=== PATIENT | male | born 1955 | race African-American/Black ===

== ENCOUNTER 2017-04-30 11:51 | Emergency (ER) | payer OTHER ==
--- NOTE | 2017-04-30 14:06 | ED ---
Skin Complaint - HPI Summary HPI Summary: Patient presents with a 3m by 3cm epidermal cyst which has become infected and presenting with erythema and warmth around the wound. He endorses mild drainage from the area. Has been using warm compresses and hot shower. Continues to keep the area covered. He was seen by his PCP, Dr. Lamas who sent him to Dr. Gill the disassembler for possible excision of the area. He was placed on Keflex x2 days but states he feels it has gotten worse. Denies fevers, aches, chills or sweats. He notes pain surrounding the area which has been worse than several days ago. He is unsure the length of time the cyst has been present. - History of Current Complaint Chief Complaint: EDGeneral Time Seen by Provider: 04/30/17 12:28 Stated Complaint: INFLAMED/BURST CYST ON UPPER BACK Hx Obtained From: Patient Onset/Duration: Started Days Ago Skin Exposure Onset/Duration: Days Ago Timing: Constant Onset Severity: Moderate Current Severity: Moderate Pain Intensity: 7 Pain Scale Used: 0-10 Numeric Skin Location: Discrete - mid back between shoulder blades Character: Swelling, Pain, Redness, Raised Aggravating Symptom(s): Touch Alleviating Symptom(s): Heat Associated Signs & Symptoms: Tenderness - Additional Pertinent History Primary Care Physician: [id number] - Allergy/Home Medications Allergies/Adverse Reactions: Allergies Allergy/AdvReac Type Severity Reaction Status Date / Time No Known Allergies Allergy Verified 12/27/16 10:10 PMH/Surg Hx/FS Hx/Imm Hx Previously Healthy: Yes Endocrine/Hematology History: Denies: Hx Diabetes, Hx Thyroid Disease Cardiovascular History: Denies: Hx Hypertension, Hx Pacemaker/ICD Respiratory History: Denies: Hx Asthma, Hx Chronic Obstructive Pulmonary Disease (COPD) GI History: Denies: Hx Ulcer History: Reports: Other Problems/Disorders - prostate cancer, recently diagnosed Musculoskeletal History: Reports: Hx Arthritis, Hx Rheumatoid Arthritis, Hx Orthopedic Injury - left hip fx, Other Musculoskeletal History - left knee Sensory History: Denies: Hx Hearing Aid Neurological History: Reports: Hx Seizures, Other Neuro Impairments/Disorders - hx of seizures Psychiatric History: Reports: Hx Depression - dx major depression recurrent and severe, Hx Inpatient Treatment - Past [facility] admissions last known 2006, Hx of Violent Episodes Against Others - no current concerns noted, Hx Substance Abuse - known ETOH and cocaine use Denies: Hx Panic Disorder - Cancer History Cancer Type, Location and Year: Pt states he is recently diagnosed with prostate cancer - Surgical History Surgery Procedure, Year, and Place: left knee 1990, left hip fracture August 2015 - Immunization History Hx Pertussis Vaccination: No Immunizations Up to Date: Unable to Obtain/Confirm Infectious Disease History: No Infectious Disease History: Reports: Hx Hepatitis - hepatits C Denies: Hx Human Immunodeficiency Virus (HIV), History Other Infectious Disease, Traveled Outside the [place] in Last 30 Days - Family History Known Family History: Positive: Unknown - Social History Occupation: Unemployed Lives: With Family Alcohol Use: None Alcohol Amount: hx of alcohol use Hx Substance Use: Yes Substance Use Type: Reports: Cocaine Substance Use Comment - Amount & Last Used: pt admits to recent cocaine use prior to ED visit Hx Tobacco Use: Yes Smoking Status (MU): Light Every Day Tobacco Smoker Type: Cigarettes Amount Used/How Often: trying to quit , a few cigarettes a day Review of Systems Constitutional: Negative Cardiovascular: Negative Respiratory: Negative Positive: no symptoms reported, see HPI Musculoskeletal: Negative Positive: Other Neurological: Negative Psychological: Normal All Other Systems Reviewed And Are Negative: Yes Physical Exam Vital Signs On Initial Exam: Initial Vitals Temp Pulse Resp BP Pulse Ox 98.9 F 87 18 104/69 98 04/30/17 11:59 04/30/17 11:59 04/30/17 11:59 04/30/17 11:59 04/30/17 11:59 Procedures - Incision and Drainage Anesthesia: Lidocaine Instrument(s): Needle Packing: Other - no packing Diagnostics - Vital Signs Vital Signs Temp Pulse Resp BP Pulse Ox 04/30/17 12:05 96.8 F 86 17 104/69 98 04/30/17 11:59 98.9 F 87 18 104/69 98 - Laboratory Lab Statement: Any lab studies that have been ordered have been reviewed, and results considered in the medical decision making process. Course/Dx - Course Course Of Treatment: Mid back between shoulder blades epidermal cyst measuring 3X3cm. Iodine used around wound for cleansing. Xylocaine 1% 2ml for local anesthetic around the wound, patient tolerated well. Copious discharge from the surface of the wound. The cyst extends deep, is indurated and non- fluctuant. Attempted to aspiriate some fluid with 15 gauage without success. Culture sent. Telfa dressing applied with tegaderm. Return precuations given. Explained to patient and friend this cyst will need to be excised by Dermatology at dermatologists discretion and encouraged to call office on Monday morning for appt. Continue with keflex as prescribed. At this time, will not change abx. Will await cultures and call if abx change is required. Patient understands discharge and will follow up. - Differential Diagnoses - Skin Complaint Differential Diagnoses: Abscess, Cellulitis, Impetigo, Other - cyst, epidermal cyst - Diagnoses Provider Diagnoses: Epidermal inclusion cyst Discharge - Discharge Plan Condition: Stable Disposition: HOME Patient Education Materials: Epidermal Inclusion Cysts (ED) Referrals: Radha Lamas MD [Primary Care Provider] - Additional Instructions: Follow up with Dr. Gill Call office on Monday Warm compresses to area Keep covered with dressings given to you Shower as normal If you develop any fevers, return to ED immediately.
[2017-04-30 14:13] VITALS: BP 133/75
== END 2017-04-30 14:21 | disposition home or self-care (01) ==
LOC: ED 11:51
DX: L72.0 Epidermal cyst (principal); F17.210 Nicotine dependence, cigarettes, uncomplicated; C61 Malignant neoplasm of prostate
CPT/HCPCS: 87070; 87205; 87640; 87641; 99282

== ENCOUNTER 2017-08-05 19:27 | Observation (INO) | payer OTHER ==
[2017-08-05] MEDS ORDERED: LORazepam INJ* 2 MG/ML 1 ML VIAL IV PUSH ONE (19:55)
[2017-08-05] MEDS ORDERED: LORazepam INJ* 2 MG/ML 1 ML VIAL ONE (19:59)
[2017-08-05] MEDS ORDERED: NS 0.9% 1000 ML* 1,000 ML IV SCH ×2 (20:15→23:15)
[2017-08-05 20:43] LABS: Hematocrit 39 % (42-52); Hemoglobin 13.3 g/dl (14.0-18.0); Mean Corpuscular HGB Conc 35 g/dl (31-36); Mean Corpuscular Hemoglobin 30 pg (27-31); Mean Corpuscular Volume 86 fL (80-94); Mean Platelet Volume 9 um3 (7.4-10.4); Red Blood Count 4.51 10^6/ul (4.0-5.4); Red Cell Distribution Width 16 % (10.5-15)
--- NOTE | 2017-08-05 20:44 | RAD ---
INDICATION: Seizure. COMPARISON: Comparison is made with a prior chest x-ray study from September 09, 2015. TECHNIQUE: 2 portable films of the chest were obtained. FINDINGS: The heart appears mildly enlarged. The lungs are underinflated. There are diffuse prominence of the interstitial markings. No pleural effusion is seen. IMPRESSION: PROMINENCE OF THE INTERSTITIAL MARKINGS SUGGESTIVE OF CONGESTIVE HEART FAILURE OR ALTERNATIVELY SECONDARY TO LOW LUNG VOLUMES.
[2017-08-05 21:01] LABS: Ammonia 67 mol/L (16-53)
[2017-08-05 21:02] LABS: ALT 16 U/L (7-52); AST 18 U/L (13-39); Albumin 3.4 g/dL (3.2-5.2); Alkaline Phosphatase 101 U/L (34-104); Anion Gap 10 mmol/L (2-11); BUN/Creatinine Ratio 19.5 (8-20); Blood Urea Nitrogen 15 mg/dL (6-24); C Reactive Protein 12.54 mg/L (< 5.00); CO2 Carbon Dioxide 23 mmol/L (22-32); Calcium 8.7 mg/dL (8.6-10.3); Chloride 105 mmol/L (101-111); Creatine Kinase 103 U/L (10-223); EGFR African American 130.8 (>60); EGFR Non-African American 101.7 (>60); Globulin 4.8 g/dL (2-4); Glucose 91 mg/dL (70-100); Lipase < 10 U/L (11.0-82.0); Magnesium 1.9 mg/dL (1.9-2.7); Potassium 3.6 mmol/L (3.5-5.0); Sodium 138 mmol/L (133-145); Total Protein 8.2 g/dL (6.4-8.9)
[2017-08-05 21:05] LABS: B Type Natriuretic Peptide 66 pg/mL
[2017-08-05 21:23] LABS: Acetaminophen < 15 mcg/mL; Alcohol < 10 mg/dL (<10)
[2017-08-05 21:39] LABS: TSH (Thyroid Stimulating Horm) 3.74 mcIU/mL (0.34-5.60)
[2017-08-05] MEDS: NS 0.9% 1000 ML* 2,000 ML IV ONE (22:31)
[2017-08-05] MEDS ORDERED: Acetaminophen TAB* 325 MG PO PRN (22:53)
[2017-08-05] MEDS ORDERED: LORazepam INJ* 2 MG/ML 1 ML VIAL IV PUSH PRN (22:57)
[2017-08-06 01:25] LABS: Urine Bacteria Absent (Absent); Urine Bilirubin Negative (Negative); Urine Glucose Negative (Negative); Urine Nitrite Negative (Negative)
--- NOTE | 2017-08-06 02:11 | HP ---
CC: Dr. Lamas; Dr. Blackwood * HISTORY AND PHYSICAL: DATE OF ADMISSION: 08/05/17 PRIMARY CARE PROVIDER: Dr. Lamas. CHIEF COMPLAINT: Seizure. HISTORY OF PRESENT ILLNESS: Scott Trejo is a 62-year-old male with a history of seizure disorder who apparently did not have a seizure for approximately 10 years. He came into the emergency department after he had one seizure, what was generalized clonic tonic and at home. When he was being evaluated by the ED physician, he seized again. At this point he received 2 mg of IV Ativan and currently he is sedated. Apparently before he got sedated and postictal, he told the ER physician that he had been on Keppra at 500 mg twice a day and his primidone was discontinued due to recently diagnosed "liver problems." The ER physician called Dr. Blackwood from Neurology, who recommended a bolus of 750 mg of IV Keppra, the patient is not sure what dose and when was the last dose of his Keppra medication. Unfortunately, we are unable to confirm the last dose of the patient's medication due to that he was seizing, then he was postictal and sedated with Ativan. Currently, the patient is still sedated. Past medical history is taken from medical records from admission in 2015. PAST MEDICAL HISTORY: Includes: 1. Alcohol abuse. 2. Rheumatoid arthritis. 3. Neuropathy. 4. Prostate cancer. 5. Seizure disorder. 6. Depression. 7. Hepatitis C. Recently diagnosed "liver disorder." MEDICATIONS: At home and none apart from confirmed by the ED physician, Keppra 500 mg b.i.d. and primidone that was discontinued. ALLERGIES: No known drug allergies reported recently in medical records. FAMILY HISTORY: From medical records, mother has a history of alcohol abuse and father with a history of unknown tumor. SOCIAL HISTORY: The patient is unable to give me enough social history, but apparently had a history of smoking and drinking in the past. The patient was not able to name his surrogate now because of being sedated. REVIEW OF SYSTEMS: Unobtainable from this sedated and postictal patient. PHYSICAL EXAMINATION GENERAL: The patient is a 62-year-old male who is currently mumbling to himself , unable to give me his name due to sedation. The patient appears in no acute distress, once again fairly sedated. VITAL SIGNS: Blood pressure 182/79, heart rate of 98 and regular, respiratory rate of 21, oxygen saturation 93% on 2L of oxygen nasal cannula, temperature of 98.4. HEENT: Head: Atraumatic, normocephalic. Eyes: Pupils equal and reactive to light. Oropharynx clear. Mucosa is moist. NECK: Supple. No JVD, no bruits bilaterally. RESPIRATORY: Clear to auscultation bilaterally. CARDIOVASCULAR: Regular rate and rhythm. No murmur. ABDOMEN: Soft and nontender. Bowel sounds are present in all 4 quadrants. EXTREMITIES: There is no edema. Pulses are 2+ bilaterally. No clubbing or cyanosis. NEURO EVALUATION: The patient is currently sedated. He withdraws in all extremities to pain with equal strength. SKIN: On evaluation of the skin, no ecchymotic areas or rashes noted. DIAGNOSTIC STUDIES/LAB DATA: Showed sodium of 138, potassium 3.6, chloride 105 , carbon dioxide 23, BUN 15, creatinine 0.77. Liver function tests were unremarkable. C-reactive protein of 12. Ammonia of 67, lipase of below 10, TSH of 3.7. CBC: White blood cell count 7.0, hemoglobin of 13.3, hematocrit of 39, and platelets of 154,000. Patient's lactic acid was 7.2. Acetaminophen and serum alcohol below detectable. Portable chest x-ray: "Prominence of interstitial marking suggestive of congestive heart failure or secondary to low lung volumes." The patient's EKG showed sinus rhythm with a heart rate of 95 beats per minute with no ST changes. ASSESSMENT AND PLAN: This is a 62-year-old male with a history of seizure disorder who recently has had medications changed due to problems with liver disease. At this point, the patient is going to be placed on Keppra [address] Blackwood will be asked to see the patient in the morning for consultation. He was already notified by the ED physician. We will place the patient on anesthesia precautions and Ativan as needed if seizure recurs. The patient's ammonia level is mildly elevated. At this point, the patient would not tolerate p.o. lactulose. I will recheck the level in the morning. The patient's lactic acid is elevated due to seizure. We will place the patient on gentle intravenous hydration. We will also place the patient on clear liquid diet and may be able to advance it later on as tolerated depending on the patient's mental status. For DVT prophylaxis, the patient is going to be placed on heparin subcutaneously. All the remaining medications for the time being are going to be held and confirmed in the morning with either the patient's primary care provider or his pharmacy when he is more lucid. Code status. By default, the patient is going to be full code. That also will have to be confirmed whilst the patient is more lucid in the morning. [id number]/CPS #: [id number] MTDD
--- NOTE | 2017-08-06 06:05 | ED ---
Destiney Bhatt Rebecca, scribed for Arnaldo Sexton MD on 08/05/17 at 1959 . Neurological HPI - HPI Summary HPI Summary: Pt is a 62 y/o M BIBA who presents to ED s/p seizure. 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 Pt reports that he does not remember the incident, stating the last thing that he can recall is watching a baseball game and that he does not remember EMS arriving. Negative trauma during the seizure, including head trauma. Pt currently c/o fatigue. Denies fever, chills, weakness and any pain including BATES and abdominal pain. 1 week ago, the pt's medication was changed from Primidone to Keppra BID due to a new Hepatitis C medication. Pt denies any recent stressors or EtOH use. Neurologist is Dr. Almanza. While being evaluated, after the television was turned on, the pt experineced a sudden onset seizure that spontaneously resolved. 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, one in the ED Pain Intensity: 0 Pain Scale Used: 0-10 Numeric Seizure Character: Generalized, Total-Clonic Aggravating: Medication Change - Primidone to Keppra Alleviating: Spontanious Resolution Associated Signs and Symptoms: Negative: Weakness - Additional Pertinent History Primary Care Physician: [id number] - Allergy/Home Medications Allergies/Adverse Reactions: Allergies Allergy/AdvReac Type Severity Reaction Status Date / Time No Known Allergies Allergy Verified 12/27/16 10:10 PMH/Surg Hx/FS Hx/Imm Hx Endocrine/Hematology History: Denies: Hx Diabetes, Hx Thyroid Disease Cardiovascular History: Denies: Hx Hypertension, Hx Pacemaker/ICD Respiratory History: Denies: Hx Asthma, Hx Chronic Obstructive Pulmonary Disease (COPD) GI History: Denies: Hx Ulcer History: Reports: Other Problems/Disorders - prostate cancer, recently diagnosed Musculoskeletal History: Reports: Hx Arthritis, Hx Rheumatoid Arthritis, Hx Orthopedic Injury - left hip fx, Other Musculoskeletal History - left knee Sensory History: Denies: Hx Hearing Aid Neurological History: Reports: Hx Seizures, Other Neuro Impairments/Disorders - hx of seizures Psychiatric History: Reports: Hx Depression - dx major depression recurrent and severe, Hx Inpatient Treatment - Past [facility] admissions last known 2006, Hx of Violent Episodes Against Others - no current concerns noted, Hx Substance Abuse - known ETOH and cocaine use Denies: Hx Panic Disorder - Cancer History Cancer Type, Location and Year: Pt states he is recently diagnosed with prostate cancer - Surgical History Surgery Procedure, Year, and Place: left knee 1990, left hip fracture August 2015 Infectious Disease History: Unable to Obtain/Confirm Infectious Disease History: Reports: Hx Hepatitis - hepatits C Denies: Hx Human Immunodeficiency Virus (HIV), History Other Infectious Disease, Traveled Outside the [place] in Last 30 Days - Family History Known Family History: Positive: Other - EtOH abuse (mother) - Social History Alcohol Use: None Alcohol Amount: hx of alcohol use Hx Substance Use: Yes Substance Use Type: Reports: Cocaine Substance Use Comment - Amount & Last Used: pt admits to recent cocaine use prior to ED visit Hx Tobacco Use: Yes Smoking Status (MU): Light Every Day Tobacco Smoker Type: Cigarettes Amount Used/How Often: trying to quit , a few cigarettes a day Review of Systems Negative: Fever, Chills Negative: Abdominal Pain Positive: Other - NEGATIVE: pain Neurological: Other - s/p 1 seizure, 1 seizure in the ED Negative: Headache, Weakness All Other Systems Reviewed And Are Negative: Yes Physical Exam - Summary Physical Exam Summary: General: well-appearing, no pain distress Skin: warm, color reflects adequate perfusion, dry Head: normal Eyes: EOMI, ADRIA ENT: normal Neck: supple, nontender Respiratory: CTA, breath sounds present Cardiovascular: RRR Abdomen: soft, nontender Bowel: present Musculoskeletal: normal, strength/ROM intact Neurological: sensory/motor intact, A&O x3, while in the room pt experienced a generalized tonic clonic seizure that lasted approximately 45 seconds Psychological: affect/mood appropriate Triage Information Reviewed: Yes Vital Signs On Initial Exam: Initial Vitals Temp Pulse Resp BP Pulse Ox 98.4 F 88 16 132/81 95 08/05/17 19:30 08/05/17 19:30 08/05/17 19:30 08/05/17 19:30 08/05/17 19:30 Vital Signs Reviewed: Yes - Platter Coma Scale Coma Scale Total: 15 Diagnostics - Vital Signs Vital Signs Temp Pulse Resp BP Pulse Ox 08/05/17 19:30 98.4 F 88 16 132/81 95 - Laboratory Lab Results: Lab Results 08/05/17 08/05/17 08/05/17 Range/Units 20:30 20:30 20:30 WBC (3.5-10.8) 10^3/ul RBC (4.0-5.4) 10^6/ul Hgb (14.0-18.0) g/dl Hct (42-52) % MCV (80-94) fL MCH (27-31) pg MCHC (31-36) g/dl RDW (10.5-15) % Plt Count (150-450) 10^3/ul MPV (7.4-10.4) um3 Neut % (Auto) (38-83) % Lymph % (Auto) (25-47) % Clinton % (Auto) (1-9) % Eos % (Auto) (0-6) % Baso % (Auto) (0-2) % Absolute Neuts (auto) (1.5-7.7) 10^3/ul Absolute Lymphs (auto) (1.0-4.8) 10^3/ul Absolute Monos (auto) (0-0.8) 10^3/ul Absolute Eos (auto) (0-0.6) 10^3/ul Absolute Basos (auto) (0-0.2) 10^3/ul Absolute Nucleated RBC 10^3/ul Nucleated RBC % INR (Anticoag Therapy) 1.06 (0.89-1.11) APTT 24.9 L (26.0-36.3) seconds Sodium 138 (133-145) mmol/L Potassium 3.6 (3.5-5.0) mmol/L Chloride 105 (101-111) mmol/L Carbon Dioxide 23 (22-32) mmol/L Anion Gap 10 (2-11) mmol/L BUN 15 (6-24) mg/dL Creatinine 0.77 (0.67-1.17) mg/dL Est GFR ( Amer) 130.8 (>60) Est GFR (Non-Af Amer) 101.7 (>60) BUN/Creatinine Ratio 19.5 (8-20) Glucose 91 (70-100) mg/dL Lactic Acid (0.5-2.0) mmol/L Calcium 8.7 (8.6-10.3) mg/dL Magnesium 1.9 (1.9-2.7) mg/dL Total Bilirubin 0.30 (0.2-1.0) mg/dL AST 18 (13-39) U/L ALT 16 (7-52) U/L Alkaline Phosphatase 101 (34-104) U/L Ammonia 67 H (16-53) mol/L Total Creatine Kinase 103 (10-223) U/L CK-MB (CK-2) 1.6 (0.6-6.3) ng/mL Troponin I 0.00 (<0.04) ng/mL C-Reactive Protein 12.54 H (< 5.00) mg/L B-Natriuretic Peptide 66 ( - 100) pg/mL Total Protein 8.2 (6.4-8.9) g/dL Albumin 3.4 (3.2-5.2) g/dL Globulin 4.8 H (2-4) g/dL Albumin/Globulin Ratio 0.7 L (1-3) Lipase < 10 L (11.0-82.0) U/L TSH 3.74 (0.34-5.60) mcIU/mL Acetaminophen < 15 mcg/mL Serum Alcohol < 10 (<10) mg/dL 08/05/17 08/05/17 Range/Units 20:30 20:30 WBC 7.0 (3.5-10.8) 10^3/ul RBC 4.51 (4.0-5.4) 10^6/ul Hgb 13.3 L (14.0-18.0) g/dl Hct 39 L (42-52) % MCV 86 (80-94) fL MCH 30 (27-31) pg MCHC 35 (31-36) g/dl RDW 16 H (10.5-15) % Plt Count 154 (150-450) 10^3/ul MPV 9 (7.4-10.4) um3 Neut % (Auto) 70.0 (38-83) % Lymph % (Auto) 19.7 L (25-47) % Clinton % (Auto) 7.9 (1-9) % Eos % (Auto) 2.0 (0-6) % Baso % (Auto) 0.4 (0-2) % Absolute Neuts (auto) 4.9 (1.5-7.7) 10^3/ul Absolute Lymphs (auto) 1.4 (1.0-4.8) 10^3/ul Absolute Monos (auto) 0.6 (0-0.8) 10^3/ul Absolute Eos (auto) 0.1 (0-0.6) 10^3/ul Absolute Basos (auto) 0 (0-0.2) 10^3/ul Absolute Nucleated RBC 0 10^3/ul Nucleated RBC % 0 INR (Anticoag Therapy) (0.89-1.11) APTT (26.0-36.3) seconds Sodium (133-145) mmol/L Potassium (3.5-5.0) mmol/L Chloride (101-111) mmol/L Carbon Dioxide (22-32) mmol/L Anion Gap (2-11) mmol/L BUN (6-24) mg/dL Creatinine (0.67-1.17) mg/dL Est GFR ( Amer) (>60) Est GFR (Non-Af Amer) (>60) BUN/Creatinine Ratio (8-20) Glucose (70-100) mg/dL Lactic Acid 7.2 H* (0.5-2.0) mmol/L Calcium (8.6-10.3) mg/dL Magnesium (1.9-2.7) mg/dL Total Bilirubin (0.2-1.0) mg/dL AST (13-39) U/L ALT (7-52) U/L Alkaline Phosphatase (34-104) U/L Ammonia (16-53) mol/L Total Creatine Kinase (10-223) U/L CK-MB (CK-2) (0.6-6.3) ng/mL Troponin I (<0.04) ng/mL C-Reactive Protein (< 5.00) mg/L B-Natriuretic Peptide ( - 100) pg/mL Total Protein (6.4-8.9) g/dL Albumin (3.2-5.2) g/dL Globulin (2-4) g/dL Albumin/Globulin Ratio (1-3) Lipase (11.0-82.0) U/L TSH (0.34-5.60) mcIU/mL Acetaminophen mcg/mL Serum Alcohol (<10) mg/dL Result Diagrams: 08/05/17 20:30 08/05/17 20:30 Lab Statement: Any lab studies that have been ordered have been reviewed, and results considered in the medical decision making process. - Radiology CXR Xray Interpretation: Positive (See Comments) - PROMINENCE OF THE INTERSTITIAL MARKINGS SUGGESTIVE OF CONGESTIVE HEART FAILURE OR ALTERNATIVELY SECONDARY TO LOW LUNG VOLUMES. ED Physician reviewed the report and agrees. Radiology Interpretation Completed By: Radiologist - EKG 2048 Cardiac Rate: NL - 95 bpm EKG Rhythm: Sinus Rhythm ST Segment: Normal Ectopy: None Re-Evaluation - Re-Evaluation First Eval Re-Evaluation Time: 20:24 Comment: Pt is unconscious. Course/Dx - Course Assessment/Plan: Medications reviewed. Elevated BP noted and advised to f/u with PCP. Discussed with Dr Blackwood, neurology. Admit hospitalist stable. - Diagnoses Provider Diagnoses: Seizures - Physician Notifications Discussed Care Of Patient With: Dahlia Jean Baptiste Time Discussed With Above Provider: 21:35 Instructed by Provider To: Other - Accepts pt for admission. - Critical Care Time Critical Care Time: 30-74 min Discharge - Discharge Plan Condition: Stable Disposition: ADMITTED TO [facility] documentation as recorded by the Destiney martinez Rebecca accurately reflects the service I personally performed and the decisions made by me, Arnaldo Sexton MD.
[2017-08-06 06:48] LABS: Hematocrit 37 % (42-52); Hemoglobin 13.1 g/dl (14.0-18.0); Mean Corpuscular HGB Conc 35 g/dl (31-36); Mean Corpuscular Hemoglobin 30 pg (27-31); Mean Corpuscular Volume 84 fL (80-94); Mean Platelet Volume 10 um3 (7.4-10.4); Red Blood Count 4.44 10^6/ul (4.0-5.4); Red Cell Distribution Width 15 % (10.5-15); White Blood Count 6.7 10^3/ul (3.5-10.8)
[2017-08-06 07:02] LABS: BUN/Creatinine Ratio 15.6 (8-20); Calcium 8.1 mg/dL (8.6-10.3); EGFR African American 130.8 (>60); EGFR Non-African American 101.7 (>60); Potassium 3.7 mmol/L (3.5-5.0)
[2017-08-06] MEDS ORDERED: Heparin VIAL(*) 5000 UNITS/ML VIAL (FIVE THOUSAND) SUBCUT SCH (09:00)
[2017-08-06] MEDS ORDERED: levETIRAcetam TAB* 500 MG PO SCH (09:00)
--- NOTE | 2017-08-06 09:34 | DCNOTE ---
Subjective Date of Service: 08/06/17 Interval History: Feels OK. He states his nursing tech fills up his med container twice a week. He gets his Mavyret directly from Dr. Clinton's office. Objective Active Medications: Acetaminophen (Tylenol Tab*) 650 mg PO Q4H PRN PRN Reason: FEVER/PAIN Heparin Sodium (Porcine) (Heparin Vial(*)) 5,000 units SUBCUT Q12HR [facility] Last Admin: 08/06/17 08:32 Dose: 5,000 units Sodium Chloride (Ns 0.9% 1000 Ml*) 1,000 mls @ 75 mls/hr IV PER RATE [facility] Levetiracetam (Keppra Tab*) 750 mg PO BID [facility] Last Admin: 08/06/17 08:31 Dose: 750 mg Lorazepam (Ativan Inj*) 1 mg IV PUSH ONCE PRN PRN Reason: SEIZURES Vital Signs 08/05/17 08/05/17 08/05/17 22:30 23:00 23:35 Temperature 98.3 F Pulse Rate 102 Respiratory 22 26 20 Rate Blood Pressure 138/86 129/84 132/77 (mmHg) O2 Sat by Pulse Oximetry 08/05/17 08/06/17 08/06/17 23:53 03:00 03:27 Temperature 98.3 F 98.4 F 98.4 F Pulse Rate 103 92 92 Respiratory 20 18 16 Rate Blood Pressure 132/77 122/78 117/67 (mmHg) O2 Sat by Pulse 97 98 98 Oximetry 08/06/17 07:29 Temperature 98.2 F Pulse Rate 83 Respiratory 17 Rate Blood Pressure 128/66 (mmHg) O2 Sat by Pulse 93 Oximetry Oxygen Devices in Use Now: None Appearance: Alert, partly up in bed. Neutral affect. Looks comfortable. Neck: NL Appearance and Movements; NL JVP, No Thyroid Enlargement, Masses Respiratory: Symmetrical Chest Expansion and Respiratory Effort, Clear to Auscultation, Clear to Percussion Cardiovascular: NL Sounds; No Murmurs; No JVD, RRR, No Edema, - Extremities: No Edema, No Clubbing, Cyanosis, - Skin: No Rash or Ulcers, No Nodules or Sclerosis, - Neurological: Alert and Oriented x 3, NL Sensation Result Diagrams: 08/06/17 06:39 08/06/17 06:39 Additional Lab and Data: Lab Results 08/05/17 08/05/17 08/05/17 Range/Units 20:30 20:30 20:30 WBC (3.5-10.8) 10^3/ul RBC (4.0-5.4) 10^6/ul Hgb (14.0-18.0) g/dl Hct (42-52) % MCV (80-94) fL MCH (27-31) pg MCHC (31-36) g/dl RDW (10.5-15) % Plt Count (150-450) 10^3/ul MPV (7.4-10.4) um3 Neut % (Auto) (38-83) % Lymph % (Auto) (25-47) % [place] % (Auto) (1-9) % Eos % (Auto) (0-6) % Baso % (Auto) (0-2) % Absolute Neuts (auto) (1.5-7.7) 10^3/ul Absolute Lymphs (auto) (1.0-4.8) 10^3/ul Absolute Monos (auto) (0-0.8) 10^3/ul Absolute Eos (auto) (0-0.6) 10^3/ul Absolute Basos (auto) (0-0.2) 10^3/ul Absolute Nucleated RBC 10^3/ul Nucleated RBC % INR (Anticoag Therapy) 1.06 (0.89-1.11) APTT 24.9 L (26.0-36.3) seconds Sodium 138 (133-145) mmol/L Potassium 3.6 (3.5-5.0) mmol/L Chloride 105 (101-111) mmol/L Carbon Dioxide 23 (22-32) mmol/L Anion Gap 10 (2-11) mmol/L BUN 15 (6-24) mg/dL Creatinine 0.77 (0.67-1.17) mg/dL Est GFR ( Amer) 130.8 (>60) Est GFR (Non-Af Amer) 101.7 (>60) BUN/Creatinine Ratio 19.5 (8-20) Glucose 91 (70-100) mg/dL Lactic Acid (0.5-2.0) mmol/L Calcium 8.7 (8.6-10.3) mg/dL Magnesium 1.9 (1.9-2.7) mg/dL Total Bilirubin 0.30 (0.2-1.0) mg/dL AST 18 (13-39) U/L ALT 16 (7-52) U/L Alkaline Phosphatase 101 (34-104) U/L Ammonia 67 H (16-53) mol/L Total Creatine Kinase 103 (10-223) U/L CK-MB (CK-2) 1.6 (0.6-6.3) ng/mL Troponin I 0.00 (<0.04) ng/mL C-Reactive Protein 12.54 H (< 5.00) mg/L B-Natriuretic Peptide 66 ( - 100) pg/mL Total Protein 8.2 (6.4-8.9) g/dL Albumin 3.4 (3.2-5.2) g/dL Globulin 4.8 H (2-4) g/dL Albumin/Globulin Ratio 0.7 L (1-3) Lipase < 10 L (11.0-82.0) U/L TSH 3.74 (0.34-5.60) mcIU/mL Acetaminophen < 15 mcg/mL Serum Alcohol < 10 (<10) mg/dL 08/05/17 08/05/17 Range/Units 20:30 20:30 WBC 7.0 (3.5-10.8) 10^3/ul RBC 4.51 (4.0-5.4) 10^6/ul Hgb 13.3 L (14.0-18.0) g/dl Hct 39 L (42-52) % MCV 86 (80-94) fL MCH 30 (27-31) pg MCHC 35 (31-36) g/dl RDW 16 H (10.5-15) % Plt Count 154 (150-450) 10^3/ul MPV 9 (7.4-10.4) um3 Neut % (Auto) 70.0 (38-83) % Lymph % (Auto) 19.7 L (25-47) % [place] % (Auto) 7.9 (1-9) % Eos % (Auto) 2.0 (0-6) % Baso % (Auto) 0.4 (0-2) % Absolute Neuts (auto) 4.9 (1.5-7.7) 10^3/ul Absolute Lymphs (auto) 1.4 (1.0-4.8) 10^3/ul Absolute Monos (auto) 0.6 (0-0.8) 10^3/ul Absolute Eos (auto) 0.1 (0-0.6) 10^3/ul Absolute Basos (auto) 0 (0-0.2) 10^3/ul Absolute Nucleated RBC 0 10^3/ul Nucleated RBC % 0 INR (Anticoag Therapy) (0.89-1.11) APTT (26.0-36.3) seconds Sodium (133-145) mmol/L Potassium (3.5-5.0) mmol/L Chloride (101-111) mmol/L Carbon Dioxide (22-32) mmol/L Anion Gap (2-11) mmol/L BUN (6-24) mg/dL Creatinine (0.67-1.17) mg/dL Est GFR ( Amer) (>60) Est GFR (Non-Af Amer) (>60) BUN/Creatinine Ratio (8-20) Glucose (70-100) mg/dL Lactic Acid 7.2 H* (0.5-2.0) mmol/L Calcium (8.6-10.3) mg/dL Magnesium (1.9-2.7) mg/dL Total Bilirubin (0.2-1.0) mg/dL AST (13-39) U/L ALT (7-52) U/L Alkaline Phosphatase (34-104) U/L Ammonia (16-53) mol/L Total Creatine Kinase (10-223) U/L CK-MB (CK-2) (0.6-6.3) ng/mL Troponin I (<0.04) ng/mL C-Reactive Protein (< 5.00) mg/L B-Natriuretic Peptide ( - 100) pg/mL Total Protein (6.4-8.9) g/dL Albumin (3.2-5.2) g/dL Globulin (2-4) g/dL Albumin/Globulin Ratio (1-3) Lipase (11.0-82.0) U/L TSH (0.34-5.60) mcIU/mL Acetaminophen mcg/mL Serum Alcohol (<10) mg/dL Assess/Plan/Problems-Billing Assessment: - Patient Problems (1) Seizure disorder Current Visit: No Status: Acute Code(s): G40.909 - EPILEPSY, UNSP, NOT INTRACTABLE, WITHOUT STATUS EPILEPTICUS SNOMED Code(s): 768264069 Comment: Seizures possibly precipitated by cessation of primidone. Continue increased dose levetiracetam as outpt. Fup Dr. Almanza. (2) Hepatitis C virus infection Current Visit: Yes Status: Acute Comment: Continue Mavyret and fup with Dr. Clinton. (3) Prostatism Current Visit: Yes Status: Acute Code(s): N40.0 - BENIGN PROSTATIC HYPERPLASIA WITHOUT LOWER URINRY TRACT SYMP SNOMED Code(s): 93246815 Comment: Continue finasterid and tamsulosin. Status and Disposition: Discharge now. Fup Cami Anton MacQueen.
[2017-08-06 11:35] VITALS: BP 121/48
[2017-08-06] MEDS ORDERED: MAVYRET PO SCH ×2 (15:00→21:00)
--- NOTE | 2017-08-06 21:30 | DS ---
CC: Dr. Lamas; Dr. Clinton; Dr. Almanza * DISCHARGE SUMMARY: DATE OF ADMISSION: 08/05/17 DATE OF DISCHARGE: 08/06/17 HISTORY OF PRESENT ILLNESS: This 62-year-old man presented after a seizure. He had been treated for seizure disorder and apparently had not been seizure free for about 10 years. Recently, he was started on treatment for hepatitis C. His primidone was stopped. This possibly precipitated the onset of seizures. He sees the second time after arriving at the emergency room. He was given an extra dose of levetiracetam 750 mg IV. He had been taking 500 b.i.d. at home. He will be discharged on 750 mg b.i.d. He will follow up with Dr. Clinton for his hepatitis C. Continue on his Mavyret and his prostate medications. He will follow up with Dr. Lamas and Dr. Almanza. FINAL DIAGNOSES: 1. Seizure disorder. 2. Hepatitis C. 3. Prostatism. DISCHARGE MEDICATIONS: 1. Levetiracetam 750 mg tablet 1 b.i.d. 2. Finasteride 5 mg daily. 3. Tamsulosin 0.4 mg daily. Magnesium oxide, diclofenac gel, simethicone, and gabapentin that have all been prescribed to the patient recently much. The patient is taking Mavyret b.i.d. as prescribed by Dr. Clinton for hepatitis C. [id number]/[facility] #: [id number] MTDD
== END 2017-08-06 11:50 | disposition home or self-care (01) ==
LOC: ED 19:27 → MED 22:04
PROVIDERS: ADMIT Internal Medicine; ATTEND Internal Medicine
DX: G40.89 Other seizures (principal); B19.20 Unspecified viral hepatitis C without hepatic coma; F10.10 Alcohol abuse, uncomplicated; I49.3 Ventricular premature depolarization; M06.9 Rheumatoid arthritis, unspecified; G62.9 Polyneuropathy, unspecified; N40.0 Benign prostatic hyperplasia without lower urinary tract symptoms; F32.9 Major depressive disorder, single episode, unspecified; Z85.46 Personal history of malignant neoplasm of prostate; R53.83 Other fatigue; F17.210 Nicotine dependence, cigarettes, uncomplicated
CPT/HCPCS: 36415; 71010; 80048; 80053; 80177; 80320; 80329; 81003; 81015; 82140; 82550; 82553; 83605; 83690; 83735; 83880; 84443; 84484; 85025; 85610; 85730; 86140; 93005; 96374; 99284; A9270-GY; G0378; G0480; J1644; J2060

== ENCOUNTER 2017-10-24 16:51 | Emergency (ER) | payer OTHER ==
[2017-10-24] MEDS ORDERED: Morphine INJ* 4 MG/ML 1 ML CARPUJECT IV ONE (19:42)
[2017-10-24] MEDS ORDERED: Aspirin Low Dose CHEW TAB* 81 MG PO ONE (19:42)
[2017-10-24] MEDS ORDERED: Ondansetron INJ* 2 MG/ML VIAL IV ONE (19:42)
[2017-10-24 20:05] LABS: ABS Basophils 0.1 10^3/ul (0-0.2); ABS Eosinophils 0.2 10^3/ul (0-0.6); ABS Lymphocytes 1.6 10^3/ul (1.0-4.8); ABS Monocytes 0.7 10^3/ul (0-0.8); ABS Neutrophils 3.9 10^3/ul (1.5-7.7); ABS Nucleated RBC 0 10^3/ul; Eosinophil % 2.6 % (0-6); Hematocrit 37 % (42-52); Hemoglobin 12.9 g/dl (14.0-18.0); Lymphocyte % 24.7 % (25-47); Mean Corpuscular HGB Conc 35 g/dl (31-36); Mean Corpuscular Hemoglobin 30 pg (27-31); Mean Corpuscular Volume 86 fL (80-94); Mean Platelet Volume 9 um3 (7.4-10.4); Nucleated Red Blood Cells % 0; Platelet Count 173 10^3/ul (150-450); Red Cell Distribution Width 15 % (10.5-15); White Blood Count 6.6 10^3/ul (3.5-10.8)
[2017-10-24 20:19] LABS: INR 1.17 (0.77-1.02)
[2017-10-24 20:20] LABS: EGFR Non-African American 104.8 (>60)
--- NOTE | 2017-10-24 20:44 | RAD ---
Indication: 4 days substernal chest pain. History of tobacco use. Comparison: August 05, 2017 Technique: Upright AP 2010 hours Report: Negative for cardiomegaly. Mildly ill-defined central pulmonary vasculature with mild cephalization. Mild prominence of interstitial markings. Negative for pleural effusion or pneumothorax. IMPRESSION: The constellation of findings favors mild pulmonary vascular congestion and interstitial edema.
[2017-10-24 21:08] VITALS: BP 118/77
--- NOTE | 2017-10-24 21:10 | ED ---
Vicky Bhatt Gabriel, scribed for Boaz Bassett MD on 10/24/17 at 1941 . HPI Chest Pain - HPI Summary HPI Summary: This patient is a 62 year old M presenting to [facility] with a chief complaint of CP since 4-5 days ago. The patient rates the pain 7/10 in severity. Symptoms aggravated by movement. Patient reports pain on inspiration. Patient denies n/v/ d and diaphoresis .Patient ambulates with a walker. - History of Current Complaint Chief Complaint: EDChestPainROMI Time Seen by Provider: 10/24/17 19:10 Hx Obtained From: Patient Onset/Duration: Started Days Ago - 4-5 Timing: Constant Initial Severity: Moderate Current Severity: Moderate Pain Intensity: 7 Pain Scale Used: 0-10 Numeric Chest Pain Location: Diffuse Chest Pain Radiates: No Aggravating Factor(s): Movement, Deep Breaths Alleviating Factor(s): Nothing Associated Signs and Symptoms: Positive: Negative - diarrhea. Negative: Diaphoresis, Nausea, Vomiting - Additional Pertinent History Primary Care Physician: NIKHIL - Allergy/Home Medications Allergies/Adverse Reactions: Allergies Allergy/AdvReac Type Severity Reaction Status Date / Time No Known Allergies Allergy Verified 10/24/17 17:58 PMH/Surg Hx/FS Hx/Imm Hx Endocrine/Hematology History: Denies: Hx Diabetes, Hx Thyroid Disease Cardiovascular History: Denies: Hx Hypertension, Hx Pacemaker/ICD Respiratory History: Denies: Hx Asthma, Hx Chronic Obstructive Pulmonary Disease (COPD) GI History: Denies: Hx Ulcer History: Reports: Other Problems/Disorders - prostate cancer, recently diagnosed Musculoskeletal History: Reports: Hx Arthritis, Hx Rheumatoid Arthritis, Hx Orthopedic Injury - left hip fx, Other Musculoskeletal History - left knee Sensory History: Reports: Hx Contacts or Glasses Denies: Hx Hearing Aid Opthamlomology History: Reports: Hx Contacts or Glasses Neurological History: Reports: Hx Seizures, Other Neuro Impairments/Disorders - hx of seizures Psychiatric History: Reports: Hx Depression - dx major depression recurrent and severe, Hx Inpatient Treatment - Past [facility] admissions last known 2006, Hx of Violent Episodes Against Others - no current concerns noted, Hx Substance Abuse - known ETOH and cocaine use Denies: Hx Panic Disorder - Cancer History Cancer Type, Location and Year: Pt states he is recently diagnosed with prostate cancer - Surgical History Surgery Procedure, Year, and Place: left knee 1990, left hip fracture August 2015 Infectious Disease History: No Infectious Disease History: Reports: Hx Hepatitis - hepatits C Denies: Hx Human Immunodeficiency Virus (HIV), History Other Infectious Disease, Traveled Outside the [place] in Last 30 Days - Family History Known Family History: Positive: Other - EtOH abuse (mother) - Social History Occupation: Retired Lives: [facility] Alcohol Use: None Alcohol Amount: hx of alcohol use, quit december 2015 Hx Substance Use: Yes Substance Use Type: Reports: Cocaine Substance Use Comment - Amount & Last Used: none since december 2015 Hx Tobacco Use: Yes Smoking Status (MU): Former Smoker Type: Cigarettes Amount Used/How Often: trying to quit , a few cigarettes a day Review of Systems Negative: Skin Diaphoresis Positive: Chest Pain Positive: Other - pain on inspiration Negative: Vomiting, Diarrhea, Nausea All Other Systems Reviewed And Are Negative: Yes Physical Exam - Summary Physical Exam Summary: VITAL SIGNS: Reviewed. GENERAL: Patient is a well-developed and nourished male who is lying comfortable in the stretcher. Patient is not in any acute respiratory distress. HEAD AND FACE: No signs of trauma. No ecchymosis, hematomas or skull depressions. No sinus tenderness. EYES: PERRLA, EOMI x 2, No injected conjunctiva, no nystagmus. EARS: Hearing grossly intact. Ear canals and tympanic membranes are within normal limits. MOUTH: Oropharynx within normal limits. NECK: Supple, trachea is midline, no adenopathy, no JVD, no carotid bruit, no c- spine tenderness, neck with full ROM. CHEST: Symmetric, TTP in anterior chest LUNGS: Clear to auscultation bilaterally. No wheezing or crackles. CVS: Regular rate and rhythm, S1 and S2 present, no murmurs or gallops appreciated. ABDOMEN: Soft, non-tender. No signs of distention. No rebound no guarding, and no masses palpated. Bowel sounds are normal. EXTREMITIES: FROM in all major joints, no edema, no cyanosis or clubbing. NEURO: Alert and oriented x 3. No acute neurological deficits. Speech is normal and follows commands. SKIN: Dry and warm Triage Information Reviewed: Yes Vital Signs On Initial Exam: Initial Vitals Temp Pulse Resp BP Pulse Ox 100 F 98 20 146/64 98 10/24/17 17:00 01/02/18 17:00 10/24/17 17:00 10/24/17 17:00 10/24/17 17:00 Vital Signs Reviewed: Yes - [place] Coma Scale Coma Scale Total: 15 Diagnostics - Vital Signs Vital Signs Temp Pulse Resp BP Pulse Ox 10/24/17 19:00 86 24 111/68 97 10/24/17 18:30 94 27 109/61 96 10/24/17 18:00 89 17 113/73 97 10/24/17 17:58 88 17 97 10/24/17 17:55 115/71 10/24/17 17:54 18 10/24/17 17:00 100 F 98 20 146/64 98 - Laboratory Result Diagrams: 10/24/17 19:46 10/24/17 19:46 Lab Statement: Any lab studies that have been ordered have been reviewed, and results considered in the medical decision making process. Chest Pain Course/Dx - Diagnoses Provider Diagnoses: Chest wall pain Discharge - Discharge Plan Condition: Stable Disposition: HOME Referrals: Radha Lamas MD [Primary Care Provider] - Additional Instructions: RETURN TO EMERGENCY DEPARTMENT FOR ANY NEW OR WORSENING SYMPTOMS The documentation as recorded by the Vicky martinez Gabriel accurately reflects the service I personally performed and the decisions made by Danyelle webb Abdul, MD.
--- NOTE | 2017-10-24 21:21 | ED ---
Vicky Bhatt Gabriel, scribed for Boaz Bassett MD on 10/24/17 at 2118 . Progress - EKG/XRAY/CT EKG: NSR - at 94 BPM Comments: Normal axis. Normal interval. No ischemic changes. non- specific T wave eligio XRAY: chest - The constellation of findings favors mild pulmonary vascular congestion and interstitial edema. ED physician has reviewed this radiology report. Course/Dx - Course Course Of Treatment: This patient is a 62 year old M presenting to [facility] with a chief complaint of CP since 4-5 days ago. The patient rates the pain 7/10 in severity. Symptoms aggravated by movement. Patient reports pain on inspiration. Patient denies n/v/d and diaphoresis .Patient ambulates with a walker. An EKG reveals Normal axis. Normal interval. No ischemic changes. CXR reveals, per radiologist, The constellation of findings favors mild pulmonary vascular congestion and. interstitial edema. Test results with no significant abnormalities. In the ED course the patient was given ASA, morphine, and Zofran. Patient will be discharged with prescription for oxycodone and follow up from PCP. The patient is agreeable with this plan. - Diagnoses Provider Diagnoses: Chest wall pain The documentation as recorded by the Vicky martinez Gabriel accurately reflects the service I personally performed and the decisions made by Danyelle webb Abdul, MD.
== END 2017-10-24 21:22 | disposition home or self-care (01) ==
LOC: ED 16:51
DX: R07.89 Other chest pain (principal); R19.7 Diarrhea, unspecified; Z87.891 Personal history of nicotine dependence
CPT/HCPCS: 36415; 71045; 80053; 82550; 84484; 85025; 85610; 85730; 93005; 96374; 96375; 99283; A9270-GY; J2270; J2405

== ENCOUNTER 2018-04-26 20:16 | Emergency (ER) | payer MEDICARE, OTHER ==
[2018-04-26] MEDS ORDERED: levETIRAcetam IV* 1,000 MG in NS 0.9% 100 ML* 100 ML IVPB ONE (20:43)
[2018-04-26] MEDS ORDERED: NS 0.9% 1000 ML* 1,000 ML IV ONE (20:43)
[2018-04-26] MEDS ORDERED: Tetan/Diph/Pertus SYR(Tdap)* 0.5 ML SYR(BOOSTRIX) use SYR IM ONE (20:44)
[2018-04-26 21:11] LABS: ABS Basophils 0.1 10^3/ul (0-0.2); ABS Eosinophils 0 10^3/ul (0-0.6); ABS Lymphocytes 0.7 10^3/ul (1.0-4.8); ABS Monocytes 0.6 10^3/ul (0-0.8); ABS Neutrophils 5.7 10^3/ul (1.5-7.7); ABS Nucleated RBC 0 10^3/ul; Eosinophil % 0.4 % (0-6); Hematocrit 39 % (42-52); Hemoglobin 13.5 g/dl (14.0-18.0); Lymphocyte % 9.8 % (25-47); Mean Corpuscular HGB Conc 35 g/dl (31-36); Mean Corpuscular Hemoglobin 29 pg (27-31); Mean Corpuscular Volume 84 fL (80-94); Mean Platelet Volume 9.4 um3 (7.4-10.4); Nucleated Red Blood Cells % 0; Platelet Count 221 10^3/ul (150-450); Red Blood Count 4.65 10^6/ul (4.00-5.40); Red Cell Distribution Width 16 % (10.5-15); White Blood Count 7.1 10^3/ul (3.5-10.8)
[2018-04-26] MEDS ORDERED: Lidocaine 2% EPI 1:200000 MPF*10-20 ML VIAL ONE (21:23)
[2018-04-26 21:26] LABS: EGFR Non-African American 85.8 (>60)
--- NOTE | 2018-04-26 21:29 | RAD ---
INDICATION: Seizure. Laceration to left forehead. COMPARISON: Similar CT of the brain dated September 09, 2015 TECHNIQUE: Contiguous axial sections of the brain were obtained from the skull base to the vertex without contrast. FINDINGS: The ventricles, cisterns and sulci are within normal limits. There is a right-sided cisterna magna unchanged since the prior CT of the brain. The newman-white matter differentiation is adequately maintained and there is no sulcal effacement. No significant focal abnormality or mass effect is present. There is no evidence for intracranial hemorrhage. There is mild thickening, induration and laceration in the subcutaneous tissue overlying the left frontal bone. No significant focal osseous abnormality is present. The visualized portion of the paranasal sinuses appear clear. The mastoid air cells are well aerated bilaterally. IMPRESSION: Laceration overlying the left frontal bone without acute intracranial abnormality.
[2018-04-26 22:41] VITALS: BP 148/74
--- NOTE | 2018-04-27 01:33 | ED ---
Estevan Bhatt Angela, scribed for Boaz Bassett MD on 04/26/18 at 2114 . Neurological HPI - HPI Summary HPI Summary: This pt is a 63 y/o male presenting to [facility] via EMS for a witnessed seizures. Per EMS seizure lasted approximately 3 minutes. Pt has hx of seizures. He states he took his seizure medication today at 10:30 but has yet to take his second dose today. Pt notes he takes his seizure medications every day at 10:30 and at midnight. He currently reports feeling fatigued. He has a laceration to his left forehead. Denies fever, chest pain, SOB, nausea, vomiting. PMHx includes seizures. He states his last seizure was 6 months ago. - History of Current Complaint Chief Complaint: EDSeizure Stated Complaint: SEIZURE Time Seen by Provider: 04/26/18 20:33 Hx Obtained From: Patient Onset/Duration: Sudden Onset, Resolved Timing: Sudden Onset Onset Severity: Moderate Current Severity: None Pain Intensity: 0 Pain Scale Used: 0-10 Numeric Character: Other: - POS: fatigue Aggravating: Nothing Alleviating: Spontanious Resolution Associated Signs and Symptoms: Positive: Seizure. Negative: Nausea/Vomiting, Fever, Chest Pain, Shortness of Breath Related Hx: Seizure - Additional Pertinent History Primary Care Physician: [id number] - Allergy/Home Medications Allergies/Adverse Reactions: Allergies Allergy/AdvReac Type Severity Reaction Status Date / Time No Known Allergies Allergy Verified 10/24/17 17:58 Home Medications: Home Medications Alendronate (NF) [Fosamax (NF)] 70 mg PO WEEKLY 04/26/18 [History Confirmed 03/09] Gabapentin CAP(*) [Neurontin 300 CAP(*)] 300 - 600 mg PO BEDTIME 04/26/18 [ History Confirmed 04/26/18] Gabapentin CAP(*) [Neurontin 300 CAP(*)] 300 mg PO BID 04/26/18 [History Confirmed 04/26/18] Hydroxychloroquine TAB* [Plaquenil TAB*] 400 mg PO DAILY 04/26/18 [History Confirmed 04/26/18] Magnesium Oxide TAB* [MagOx 400 TAB*] 200 mg PO DAILY 04/26/18 [History Confirmed 04/26/18] Meloxicam(NF) [Mobic(NF)] 7.5 mg PO DAILY 04/26/18 [History Confirmed 04/26/18] Polyethylene Glycol 3350* [Miralax*] 17 gm PO DAILY PRN 04/26/18 [History Confirmed 04/26/18] Tamsulosin CAP* [Flomax CAP*] 0.4 mg PO DAILY 04/26/18 [History Confirmed ] levETIRAcetam [Levetiracetam ER] 750 mg PO BID 04/26/18 [History Confirmed 04/26] traMADol TAB* [Ultram*] 50 - 100 mg PO Q6HR PRN 04/26/18 [History Confirmed 03/09] PMH/Surg Hx/FS Hx/Imm Hx Endocrine/Hematology History: Denies: Hx Diabetes, Hx Thyroid Disease Cardiovascular History: Denies: Hx Hypertension, Hx Pacemaker/ICD Respiratory History: Denies: Hx Asthma, Hx Chronic Obstructive Pulmonary Disease (COPD) GI History: Denies: Hx Ulcer History: Reports: Other Problems/Disorders - prostate cancer, recently diagnosed Musculoskeletal History: Reports: Hx Arthritis, Hx Rheumatoid Arthritis, Hx Orthopedic Injury - left hip fx, Other Musculoskeletal History - left knee Denies: Hx Osteoporosis Sensory History: Reports: Hx Contacts or Glasses Denies: Hx Hearing Aid Opthamlomology History: Reports: Hx Contacts or Glasses Neurological History: Reports: Hx Seizures, Other Neuro Impairments/Disorders - hx of seizures Psychiatric History: Reports: Hx Depression - dx major depression recurrent and severe, Hx Inpatient Treatment - Past [facility] admissions last known 2006, Hx of Violent Episodes Against Others - no current concerns noted, Hx Substance Abuse - known ETOH and cocaine use Denies: Hx Panic Disorder - Cancer History Cancer Type, Location and Year: Pt states he is recently diagnosed with prostate cancer - Surgical History Surgery Procedure, Year, and Place: left knee 1990, left hip fracture August 2015 Infectious Disease History: No Infectious Disease History: Reports: Hx Hepatitis - hepatits C Denies: Hx Human Immunodeficiency Virus (HIV), History Other Infectious Disease, Traveled Outside the [place] in Last 30 Days - Family History Known Family History: Positive: Other - EtOH abuse (mother) - Social History Alcohol Use: None Alcohol Amount: hx of alcohol use, quit december 2015 Hx Substance Use: Yes Substance Use Type: Reports: Cocaine Substance Use Comment - Amount & Last Used: none since december 2015 Hx Tobacco Use: Yes Smoking Status (MU): Former Smoker Type: Cigarettes Amount Used/How Often: trying to quit , a few cigarettes a day Review of Systems Positive: Fatigue. Negative: Fever, Chills Negative: Chest Pain Negative: Shortness Of Breath Negative: Vomiting, Nausea Skin: Other - laceration to left forehead Neurological: Other - POS: seizure All Other Systems Reviewed And Are Negative: Yes Physical Exam - Summary Physical Exam Summary: VITAL SIGNS: Reviewed. GENERAL: Patient is a well-developed and nourished male who is lying comfortable in the stretcher. Patient is not in any acute respiratory distress. HEAD AND FACE: 4 cm laceration over the left lower forehead. Small abrasion over the left side of upper lip. EYES: PERRLA, EOMI x 2, No injected conjunctiva, no nystagmus. EARS: Hearing grossly intact. Ear canals and tympanic membranes are within normal limits. MOUTH: Oropharynx within normal limits. NECK: Supple, trachea is midline, no adenopathy, no JVD, no carotid bruit, no c- spine tenderness, neck with full ROM. CHEST: Symmetric, no tenderness at palpation LUNGS: Clear to auscultation bilaterally. No wheezing or crackles. CVS: Regular rate and rhythm, S1 and S2 present, no murmurs or gallops appreciated. ABDOMEN: Soft, non-tender. No signs of distention. No rebound no guarding, and no masses palpated. Bowel sounds are normal. EXTREMITIES: FROM in all major joints, no edema, no cyanosis or clubbing. NEURO: Alert and oriented x 3. No acute neurological deficits. Speech is normal and follows commands. SKIN: Dry and warm Triage Information Reviewed: Yes Vital Signs On Initial Exam: Initial Vitals Temp Pulse Resp BP Pulse Ox 98.0 F 97 14 161/96 96 04/26/18 20:25 04/26/18 20:25 04/26/18 20:25 04/26/18 20:25 04/26/18 20:25 Vital Signs Reviewed: Yes - [place] Coma Scale Best Eye Response: 4 - Spontaneous Best Motor Response: 6 - Obeys Commands Best Verbal Response: 5 - Oriented Coma Scale Total: 15 Procedures - Laceration/Wound Repair 1 Location: face - Left lower forehead Description: Linear Anesthesia: 2.0%, [place], Epi Length, Depth and Shape: 4 cm Laceration/Wound Explored: clean Closure: Multilayer - 2 layers Suture Type: Prolene - 4-O Number of Sutures: 18 - Inner layer: 5 stitches. Outer layer: Prolene 4-O, 13 stitches Layer Closure?: Yes Diagnostics - Vital Signs Vital Signs Temp Pulse Resp BP Pulse Ox 04/26/18 20:25 98.0 F 97 14 161/96 96 - Laboratory Result Diagrams: 04/26/18 20:57 04/26/18 20:57 Lab Statement: Any lab studies that have been ordered have been reviewed, and results considered in the medical decision making process. - CT Brain CT CT Interpretation: No Acute Changes - IMPRESSION: Laceration overlying the left frontal bone without acute intracranial abnormality. Dr. Bassett has reviewed this radiology report. CT Interpretation Completed By: Radiologist Re-Evaluation - Re-Evaluation First Eval Re-Evaluation Time: 22:02 Change: Improved Comment: Finished laceration repair. Second Eval Re-Evaluation Time: 22:05 Comment: Brain CT is negative. He will be discharged home with follow up from neurgolist. Course/Dx - Course Assessment/Plan: Pt is a 63 y/o male, with hx of seizures, who presents with witnessed seizures. Per EMS seizure lasted approximately 3 minutes. He states he took his seizure medication today at 10:30 but has yet to take his second dose today. Pt notes he takes his seizure medications every day at 10:30 and at midnight. He currently reports feeling fatigued. He has a laceration to his left forehead. Denies fever, chest pain, SOB, nausea, vomiting. Brain CT shows laceration overlying the left frontal bone without acute intracranial abnormality. In the ED course the pt was given IV fluids, Keppra, tetanus shot. Pt has a 4 cm laceration over left lower forehead. I performed a laceration repair of 2 layers. See procedure note. Pt tolerated the procedure well. He was discharged home with instructions to have stitches removed in 7 days and with follow up from neurologist. Pt's Keppra dose was increased to 1000 mg BID for which he was given a prescription. He is instructed to return to the ED for any worsening symptoms. - Diagnoses Provider Diagnoses: Seizure, Laceration Discharge - Sign-Out/Discharge Documenting (check all that apply): Discharge/Admit/Transfer - Discharge - Discharge Plan Condition: Stable Disposition: HOME Prescriptions: levETIRAcetam TAB* [Keppra TAB*] 1,000 mg PO BID #60 tab Patient Education Materials: Care For Your Stitches (ED), Recurrent Seizures in Adults (ED) Referrals: Radha Lamas MD [Primary Care Provider] - Meño Nicholas MD [Medical Doctor] - Additional Instructions: Your Keppra dose has been increased to 1000 mg BID. Take Keppra as prescribed. Please follow up with Dr. Nicholas, neurologist. Have your stitches removed in 7 days by your primary care provider or going to Urgent Care. RETURN TO EMERGENCY DEPARTMENT FOR ANY NEW OR WORSENING SYMPTOMS. The documentation as recorded by the Estevan martinez Angela accurately reflects the service I personally performed and the decisions made by me, Boaz Bassett MD.
== END 2018-04-26 22:40 | disposition home or self-care (01) ==
LOC: ED 20:16
DX: G40.909 Epilepsy, unspecified, not intractable, without status epilepticus (principal); S01.81XA Laceration without foreign body of other part of head, initial encounter; X58.XXXA Exposure to other specified factors, initial encounter; Z79.899 Other long term (current) drug therapy; C61 Malignant neoplasm of prostate; M06.9 Rheumatoid arthritis, unspecified; Z87.891 Personal history of nicotine dependence; Z23 Encounter for immunization
CPT/HCPCS: 12042; 36415; 70450; 80053; 83735; 85025; 90471; 90715; 96365; 99283

== ENCOUNTER 2021-01-26 06:15 | Inpatient (IN) ==
[2021-01-26] MEDS ORDERED: NS 0.9% 1000 ml BAG 1,000 ML IV.FLUID IV ONE (06:20)
[2021-01-26] MEDS ORDERED: Piperacillin/Tazobac ADVAN 3.375 GM in NS 0.9% 100 ml BAG 100 ML IVPB ONE (06:20)
[2021-01-26 07:23] LABS: ABS Lymphocytes 0.2 10^3/ul (1.0-4.8); ABS Monocytes 0.1 10^3/ul (0-0.8); ABS Neutrophils 12.1 10^3/ul (1.5-7.7); Hematocrit 42 % (42-52); Hemoglobin 14.4 g/dL (14.0-18.0); Lymphocyte % 1.6 %; Mean Corpuscular HGB Conc 34 g/dL (31-36); Mean Corpuscular Hemoglobin 31 pg (27-31); Mean Corpuscular Volume 89 fL (80-94); Mean Platelet Volume 10.2 fL (7.4-10.4); Nucleated Red Blood Cells % 0.1; Platelet Count 105 10^3/uL (150-450); Red Blood Count 4.69 10^6 /uL (4.18-5.48); Red Cell Distribution Width 15 % (10-15); White Blood Count 12.4 10^3/uL (3.5-10.8)
[2021-01-26 07:26] LABS: Influenza A Molecular Negative (Negative); Influenza B Molecular Negative (Negative)
[2021-01-26 07:39] LABS: Activated Partial Thrombo Time 30.2 seconds (26.0-38.0); INR 1.55 (0.82-1.09)
[2021-01-26 07:40] LABS: ALT 25 U/L (7-52); AST 57 U/L (13-39); Albumin 3.9 g/dL (3.2-5.2); Albumin/Globulin Ratio 1.1 (1-3); Alkaline Phosphatase 61 U/L (34-104); Anion Gap 13 mmol/L (2-11); Blood Urea Nitrogen 35 mg/dL (6-24); C Reactive Protein 167.27 mg/L (<8.01); CO2 Carbon Dioxide 23 mmol/L (22-32); Chloride 105 mmol/L (101-111); Creatine Kinase 1438 U/L (10-223); EGFR African American 41.9 (>60); EGFR Non-African American 34.6 (>60); Globulin 3.4 g/dL (2-4); Glucose 90 mg/dL (70-100); Potassium 3.9 mmol/L (3.5-5.0); Sodium 141 mmol/L (135-145); Total Protein 7.3 g/dL (6.4-8.9)
[2021-01-26 07:44] LABS: Troponin I 0.03 ng/mL (<0.03)
[2021-01-26 08:46] LABS: LDH 274 U/L (140-271)
[2021-01-26] MEDS ORDERED: Ondansetron 4 mg VIAL 2 MG/ML 2 ml VIAL IV PRN (10:15)
[2021-01-26] MEDS ORDERED: Zosyn per Pharmacy NOTE FOLLOW UP SCH (11:00)
[2021-01-26] MEDS ORDERED: Perflutren Lipid Microsphere 3 ML VIAL ONE (11:58)
[2021-01-26 12:28] LABS: Urine Appearance Cloudy; Urine Bilirubin Negative (Negative); Urine Blood 2+ (Negative); Urine Color Amber; Urine Glucose Negative (Negative); Urine Ketones Negative (Negative); Urine Nitrite Negative (Negative); Urine Protein 1+(30 mg/dL) (Negative); Urine Specific Gravity 1.026 (1.002-1.030); Urine Urobilinogen Negative (Negative)
[2021-01-26 12:33] LABS: Urine Bacteria Absent (Absent); Urine Red Blood Cell 3+(>10/hpf) (Absent); Urine Squamous Epithelial Cell Present (Absent); Urine Transitional Epithelial Present (Absent); Urine White Blood Cell 3+(>20/hpf) (Absent)
[2021-01-26 13:51] LABS: Creatine Kinase 1315 U/L (10-223)
[2021-01-26 13:59] LABS: Troponin I 0.04 ng/mL (<0.03)
[2021-01-26] MEDS: Lactated Ringers 1000 ml BAG 1,000 ML IV SCH (16:28)
[2021-01-26] MEDS: Heparin 5000 UNITS/ML 1 mL VIAL SUBCUT SCH ×2 (16:28→22:20)
[2021-01-26] MEDS: cefTRIAXone 1 gm/50 mL NS BAG 1 GM/50 ML BAG IVPB SCH (17:44)
[2021-01-26 18:21] LABS: Troponin I 0.04 ng/mL (<0.03)
[2021-01-27] MEDS: Lactated Ringers 1000 ml BAG 1,000 ML IV SCH ×2 (04:27→14:19)
[2021-01-27] MEDS: Heparin 5000 UNITS/ML 1 mL VIAL SUBCUT SCH ×3 (04:27→21:54)
[2021-01-27 05:05] LABS: BUN/Creatinine Ratio 27.6 (8-20); Calcium 8.3 mg/dL (8.6-10.3); EGFR African American 75.8 (>60); EGFR Non-African American 62.6 (>60); Potassium 4.4 mmol/L (3.5-5.0)
[2021-01-27 05:07] LABS: Hematocrit 39 % (42-52); Mean Corpuscular HGB Conc 34 g/dL (31-36); Mean Corpuscular Hemoglobin 30 pg (27-31); Mean Corpuscular Volume 89 fL (80-94); Red Blood Count 4.34 10^6 /uL (4.18-5.48); Red Cell Distribution Width 15 % (10-15); White Blood Count 23.5 10^3/uL (3.5-10.8)
[2021-01-27 07:40] LABS: ABS Basophils 0.1 10^3/ul (0-0.2); ABS Eosinophils 0.1 10^3/ul (0-0.6); ABS Lymphocytes 0.8 10^3/ul (1.0-4.8); ABS Monocytes 1.4 10^3/ul (0-0.8); ABS Neutrophils 21.1 10^3/ul (1.5-7.7); Eosinophil % 0.6 %; Lymphocyte % 3.3 %; Mean Platelet Volume 10.1 fL (7.4-10.4); Platelet Count 97 10^3/uL (150-450)
[2021-01-27] MEDS: Fluticasone NASAL SPRAY 50MCG 16 gm SPRAY BTL INTRANASAL SCH (10:01)
[2021-01-27] MEDS: Cholecalciferol (VIT D3) 1,000 unit TAB PO SCH (10:03)
[2021-01-27] MEDS: Polyethylene Glycol 3350 17 GM PACKET PO SCH (10:08)
[2021-01-27] MEDS ORDERED: Lactated Ringers 1000 ml BAG 1,000 ML IV SCH (18:04)
[2021-01-27] MEDS: cefTRIAXone 1 gm/50 mL NS BAG 1 GM/50 ML BAG IVPB SCH (18:05)
[2021-01-27] MEDS: Ampicillin ADVAN 2 GM in NS 0.9% 100 ml BAG 100 ML IVPB SCH ×2 (19:39→21:55)
[2021-01-28] MEDS: Ampicillin ADVAN 2 GM in NS 0.9% 100 ml BAG 100 ML IVPB SCH ×6 (02:58→22:02)
[2021-01-28 06:05] LABS: ABS Basophils 0.1 10^3/ul (0-0.2); ABS Eosinophils 0.1 10^3/ul (0-0.6); ABS Lymphocytes 0.8 10^3/ul (1.0-4.8); ABS Monocytes 1.4 10^3/ul (0-0.8); ABS Neutrophils 15.1 10^3/ul (1.5-7.7); Eosinophil % 0.5 %; Hematocrit 35 % (42-52); Hemoglobin 12.3 g/dL (14.0-18.0); Lymphocyte % 4.8 %; Mean Corpuscular HGB Conc 35 g/dL (31-36); Mean Corpuscular Hemoglobin 31 pg (27-31); Mean Corpuscular Volume 87 fL (80-94); Mean Platelet Volume 9.9 fL (7.4-10.4); Platelet Count 94 10^3/uL (150-450); Red Blood Count 4.04 10^6 /uL (4.18-5.48); Red Cell Distribution Width 14 % (10-15); White Blood Count 17.4 10^3/uL (3.5-10.8)
[2021-01-28] MEDS: Heparin 5000 UNITS/ML 1 mL VIAL SUBCUT SCH ×3 (06:11→22:03)
[2021-01-28 06:15] LABS: BUN/Creatinine Ratio 20.5 (8-20); Calcium 8.4 mg/dL (8.6-10.3); EGFR African American 104.2 (>60); EGFR Non-African American 86.1 (>60); Potassium 3.4 mmol/L (3.5-5.0)
[2021-01-28] MEDS: Cholecalciferol (VIT D3) 1,000 unit TAB PO SCH (08:00)
[2021-01-28] MEDS: Polyethylene Glycol 3350 17 GM PACKET PO SCH (08:01)
[2021-01-28] MEDS ORDERED: Midazolam 5 mg/5 ml VIAL 1 mg/ml 5 ml VIAL (5 mg) ONE ×2 (09:40→12:06)
[2021-01-28] MEDS ORDERED: Flumazenil 0.5 mg/5 ml 0.1 MG/ML 5 ml VIAL ONE (09:41)
[2021-01-28] MEDS ORDERED: fentaNYL 100 mcg/2 ml 50 MCG/ML VIAL ONE ×2 (09:41→12:06)
[2021-01-28] MEDS ORDERED: Naloxone 0.4 mg VIAL 0.4 mg/ml 1 ml VIAL ONE (09:41)
[2021-01-28] MEDS: Fluticasone NASAL SPRAY 50MCG 16 gm SPRAY BTL INTRANASAL SCH (09:57)
[2021-01-28] MEDS ORDERED: Propofol 10 MG/ML 20 ML BTL ONE ×2 (12:46→12:51)
[2021-01-28] MEDS ORDERED: Lidocaine 1% VIAL 10 MG/ML VIAL ONE (12:46)
[2021-01-28] MEDS ORDERED: Lidocaine 2% (CARDIAC or IV) 20 MG/ML 5 ML SYRINGE (100 MG) ONE (12:46)
[2021-01-28] MEDS ORDERED: Propofol 10 mg/ml 100 ML BTL 0 ML ONE (12:49)
[2021-01-29] MEDS: Ampicillin ADVAN 2 GM in NS 0.9% 100 ml BAG 100 ML IVPB SCH ×6 (02:27→22:40)
[2021-01-29] MEDS: Heparin 5000 UNITS/ML 1 mL VIAL SUBCUT SCH ×3 (06:06→22:02)
[2021-01-29 06:18] LABS: Hematocrit 36 % (42-52); Hemoglobin 12.5 g/dL (14.0-18.0); Mean Corpuscular HGB Conc 35 g/dL (31-36); Mean Corpuscular Hemoglobin 31 pg (27-31); Mean Corpuscular Volume 88 fL (80-94); Mean Platelet Volume 10.4 fL (7.4-10.4); Platelet Count 109 10^3/uL (150-450); Red Blood Count 4.04 10^6 /uL (4.18-5.48); Red Cell Distribution Width 14 % (10-15)
[2021-01-29 06:33] LABS: BUN/Creatinine Ratio 13.3 (8-20); C Reactive Protein 86.63 mg/L (<8.01); Calcium 8.2 mg/dL (8.6-10.3); EGFR African American 111.5 (>60); EGFR Non-African American 92.1 (>60); Potassium 3.3 mmol/L (3.5-5.0)
[2021-01-29] MEDS ORDERED: Senna TAB 8.6 mg TAB PO PRN (07:24)
[2021-01-29] MEDS: Cholecalciferol (VIT D3) 1,000 unit TAB PO SCH (09:53)
[2021-01-29] MEDS: Polyethylene Glycol 3350 17 GM PACKET PO SCH (09:55)
[2021-01-29] MEDS: Fluticasone NASAL SPRAY 50MCG 16 gm SPRAY BTL INTRANASAL SCH ×2 (09:55→10:03)
[2021-01-29 10:43] LABS: ABS Basophils 0.1 10^3/ul (0-0.2); ABS Eosinophils 0.1 10^3/ul (0-0.6); ABS Lymphocytes 1.2 10^3/ul (1.0-4.8); ABS Monocytes 1.3 10^3/ul (0-0.8); ABS Neutrophils 6.2 10^3/ul (1.5-7.7); Eosinophil % 1.6 %; Lymphocyte % 13.4 %; Nucleated Red Blood Cells % 0.1
[2021-01-29] MEDS ORDERED: Potassium Chlor 20 meq TAB.ER PO ONE (20:00)
[2021-01-30] MEDS: Ampicillin ADVAN 2 GM in NS 0.9% 100 ml BAG 100 ML IVPB SCH ×6 (00:45→20:35)
[2021-01-30] MEDS: Heparin 5000 UNITS/ML 1 mL VIAL SUBCUT SCH ×3 (05:18→22:35)
[2021-01-30 07:11] LABS: ABS Basophils 0.1 10^3/ul (0-0.2); ABS Eosinophils 0.2 10^3/ul (0-0.6); ABS Lymphocytes 1.1 10^3/ul (1.0-4.8); ABS Monocytes 1.7 10^3/ul (0-0.8); ABS Neutrophils 5.5 10^3/ul (1.5-7.7); Eosinophil % 2.1 %; Hematocrit 37 % (42-52); Hemoglobin 12.7 g/dL (14.0-18.0); Lymphocyte % 13.2 %; Mean Corpuscular HGB Conc 35 g/dL (31-36); Mean Corpuscular Hemoglobin 30 pg (27-31); Mean Corpuscular Volume 87 fL (80-94); Nucleated Red Blood Cells % 0.2; Platelet Count 118 10^3/uL (150-450); Red Blood Count 4.18 10^6 /uL (4.18-5.48); Red Cell Distribution Width 14 % (10-15); White Blood Count 8.6 10^3/uL (3.5-10.8)
[2021-01-30 07:15] LABS: BUN/Creatinine Ratio 9.9 (8-20); Calcium 8.4 mg/dL (8.6-10.3); EGFR African American 114.7 (>60); EGFR Non-African American 94.8 (>60); Potassium 3.2 mmol/L (3.5-5.0)
[2021-01-30] MEDS ORDERED: Potassium Chloride LIQUID 20 MEQ/15 ML LIQUID PO ONE (07:25)
[2021-01-30] MEDS: Cholecalciferol (VIT D3) 1,000 unit TAB PO SCH (10:00)
[2021-01-30] MEDS: Polyethylene Glycol 3350 17 GM PACKET PO SCH (10:00)
[2021-01-30] MEDS: Fluticasone NASAL SPRAY 50MCG 16 gm SPRAY BTL INTRANASAL SCH (10:01)
[2021-01-31] MEDS: Ampicillin ADVAN 2 GM in NS 0.9% 100 ml BAG 100 ML IVPB SCH ×6 (01:15→22:08)
[2021-01-31] MEDS: Heparin 5000 UNITS/ML 1 mL VIAL SUBCUT SCH ×2 (05:27→15:18)
[2021-01-31 06:11] LABS: Hematocrit 34 % (42-52); Hemoglobin 12.2 g/dL (14.0-18.0); Mean Corpuscular HGB Conc 36 g/dL (31-36); Mean Corpuscular Hemoglobin 31 pg (27-31); Mean Corpuscular Volume 87 fL (80-94); Mean Platelet Volume 9.9 fL (7.4-10.4); Platelet Count 144 10^3/uL (150-450); Red Blood Count 3.94 10^6 /uL (4.18-5.48); Red Cell Distribution Width 14 % (10-15); White Blood Count 8.9 10^3/uL (3.5-10.8)
[2021-01-31 06:24] LABS: BUN/Creatinine Ratio 12.8 (8-20); Calcium 8.5 mg/dL (8.6-10.3); EGFR Non-African American 88.4 (>60); Potassium 3.3 mmol/L (3.5-5.0)
[2021-01-31] MEDS ORDERED: Potassium Chlor 20 meq TAB.ER PO ONE (07:46)
[2021-01-31] MEDS: Cholecalciferol (VIT D3) 1,000 unit TAB PO SCH (09:53)
[2021-01-31] MEDS: Polyethylene Glycol 3350 17 GM PACKET PO SCH (09:55)
[2021-01-31] MEDS: Fluticasone NASAL SPRAY 50MCG 16 gm SPRAY BTL INTRANASAL SCH (09:55)
[2021-01-31 10:39] LABS: Magnesium 1.6 mg/dL (1.9-2.7)
[2021-01-31] MEDS ORDERED: Magnesium Sulfate 2 gm BAG 2 GM/50 ML BAG IVPB ONE (17:31)
[2021-01-31] MEDS ORDERED: Enoxaparin 40 MG/0.4 ML SYR SUBCUT SCH (21:00)
[2021-02-01] MEDS: Ampicillin ADVAN 2 GM in NS 0.9% 100 ml BAG 100 ML IVPB SCH ×4 (01:59→13:55)
[2021-02-01 05:44] LABS: ABS Basophils 0.1 10^3/ul (0-0.2); ABS Eosinophils 0.2 10^3/ul (0-0.6); ABS Lymphocytes 1.3 10^3/ul (1.0-4.8); ABS Monocytes 1.2 10^3/ul (0-0.8); ABS Neutrophils 5.1 10^3/ul (1.5-7.7); Eosinophil % 2.5 %; Hematocrit 33 % (42-52); Hemoglobin 11.7 g/dL (14.0-18.0); Lymphocyte % 16.6 %; Mean Corpuscular HGB Conc 36 g/dL (31-36); Mean Corpuscular Hemoglobin 31 pg (27-31); Mean Corpuscular Volume 87 fL (80-94); Mean Platelet Volume 9.4 fL (7.4-10.4); Platelet Count 162 10^3/uL (150-450); Red Blood Count 3.78 10^6 /uL (4.18-5.48); Red Cell Distribution Width 14 % (10-15); White Blood Count 7.9 10^3/uL (3.5-10.8)
[2021-02-01 06:00] LABS: BUN/Creatinine Ratio 12.1 (8-20); Calcium 8.4 mg/dL (8.6-10.3); EGFR African American 100.3 (>60); EGFR Non-African American 82.9 (>60); Magnesium 1.9 mg/dL (1.9-2.7); Potassium 3.4 mmol/L (3.5-5.0)
[2021-02-01] MEDS ORDERED: Potassium Chlor 10 meq TAB PO ONE (07:22)
[2021-02-01] MEDS ORDERED: Buffered Lidocaine 1% SYRIN 1 ml INTRADERM ONE ×2 (10:07→11:28)
[2021-02-01] MEDS: Polyethylene Glycol 3350 17 GM PACKET PO SCH (10:14)
[2021-02-01] MEDS: Cholecalciferol (VIT D3) 1,000 unit TAB PO SCH (10:15)
[2021-02-01] MEDS: Fluticasone NASAL SPRAY 50MCG 16 gm SPRAY BTL INTRANASAL SCH (10:16)
[2021-02-01 12:45] VITALS: BP 140/77
== END 2021-02-01 16:10 | disposition home or self-care (01) | DRG 872 ==
LOC: ED 06:15 → MED 06:15
PROVIDERS: ADMIT Hospitalist; ATTEND Internal Medicine

== ENCOUNTER 2024-11-22 07:44 | Inpatient (IN) ==
[2024-11-22] MEDS: Piperacillin/Tazobac 3.375 BAG 3.375 GM/100 ML BAG IV ONE (08:15)
[2024-11-22] MEDS: Lactated Ringers SEPSIS* BAG 2,520 ML IV ONE (08:16)
[2024-11-22 08:23] LABS: ABS Lymphocytes 0.3 10^3/uL (1.0-4.8); ABS Monocytes 0.5 10^3/uL (0.0-1.1); ABS Neutrophils 5.6 10^3/uL (1.5-7.6); ABS Nucleated RBC 0.01 10^3/ul; Eosinophil % 0.6 %; Hematocrit 40.6 % (38-53); Hemoglobin 14.3 g/dL (13.2-16.3); Lymphocyte % 4.8 %; Mean Corpuscular Hemoglobin 30.4 pg (27-33); Mean Corpuscular Hgb Conc 35.2 g/dL (31-36); Mean Corpuscular Volume 86.4 fL (80-97); Mean Platelet Volume 9.6 fL (7.5-11.2); Nucleated Red Blood Cells % 0.1 %/100WBC (0.0-0.8); Platelet Count 129 10^3/uL (150-450); Red Cell Distribution Width 15.4 % (12-17); White Blood Count 6.5 10^3/uL (3.6-10.2)
[2024-11-22 08:37] LABS: INR 1.19 (0.85-1.14)
[2024-11-22 09:04] LABS: Albumin 4.1 g/dL (3.5-5.7); Albumin/Globulin Ratio 1.2 (1-3); C Reactive Protein 5.52 mg/L (<8.01); Calcium 8.7 mg/dL (8.6-10.3); Creatinine, Serum 0.87 mg/dL (0.67-1.17); Globulin 3.3 g/dL (2-4); Potassium 3.5 mmol/L (3.5-5.0); Total Bilirubin 0.5 mg/dL (0.2-1.0); Total Protein 7.4 g/dL (6.4-8.9); eGFR CKD-EPI 92.2 (>60)
[2024-11-22] MEDS: Vancomycin 1,250 MG in NS 0.9% 250 ml 250 ML IVPB ONE (09:06)
[2024-11-22 09:40] LABS: High Sensitivity Troponin 1 Hr 6 pg/mL (<20)
[2024-11-22] MEDS: Acetaminophen IV 1 GM/100ML 1,000 MG/100 ML BAG IV ONE (10:19)
[2024-11-22 10:30] LABS: Urine Appearance Clear; Urine Bilirubin Negative (Negative); Urine Blood Negative (Negative); Urine Color Light-Yellow; Urine Glucose Negative (Negative); Urine Ketones Negative (Negative); Urine Nitrite Negative (Negative); Urine Protein Negative (Negative); Urine Specific Gravity 1.017 (1.002-1.030); Urine Urobilinogen Negative (Negative); Urine pH 5.5 (5.0-8.0)
[2024-11-22] MEDS: Albuterol/Ipratropium NEB.SOL (2.5/0.5 MG) 3 ML NEB.SOLN INH ONE (15:57)
[2024-11-22] MEDS ORDERED: Benzocaine/Menthol LOZ PO PRN (16:54)
[2024-11-22] MEDS: LORazepam 2 mg VIAL 1 ml IM SCH (18:29)
[2024-11-22] MEDS ORDERED: Lorazepam PYXIS KEY PRN (20:17)
[2024-11-22] MEDS: Enoxaparin 40 MG/0.4 ML SYR SUBCUT SCH (22:25)
[2024-11-22] MEDS: Thiamine 100 MG/ML 2 ml VIAL (200 mg) IM ONE (22:25)
[2024-11-23] MEDS: Albuterol/Ipratropium NEB.SOL (2.5/0.5 MG) 3 ML NEB.SOLN INH PRN (04:36)
[2024-11-23] MEDS: diazePAM INJ CARPUJECT 5 MG/ML SYRINGE IV SCH (05:54)
[2024-11-23 06:24] LABS: Hematocrit 39.4 % (38-53); Hemoglobin 13.9 g/dL (13.2-16.3); Mean Corpuscular Hemoglobin 30.3 pg (27-33); Mean Corpuscular Hgb Conc 35.3 g/dL (31-36); Mean Corpuscular Volume 85.7 fL (80-97); Red Blood Count 4.59 10^6/uL (4.06-5.63); Red Cell Distribution Width 14.8 % (12-17); White Blood Count 5.4 10^3/uL (3.6-10.2)
[2024-11-23 06:54] LABS: Calcium 7.9 mg/dL (8.6-10.3); Creatinine, Serum 0.89 mg/dL (0.67-1.17); Magnesium 1.4 mg/dL (1.9-2.7); Potassium 3.3 mmol/L (3.5-5.0); eGFR CKD-EPI 91.6 (>60)
[2024-11-23 07:05] LABS: ABS Lymphocytes 0.3 10^3/uL (1.0-4.8); ABS Monocytes 0.4 10^3/uL (0.0-1.1); ABS Neutrophils 4.7 10^3/uL (1.5-7.6); ABS Nucleated RBC 0.01 10^3/ul; Large Platelets Present; Lymphocyte % 4.8 %; Mean Platelet Volume 9.6 fL (7.5-11.2); Nucleated Red Blood Cells % 0.2 %/100WBC (0.0-0.8); Platelet Count 106 10^3/uL (150-450)
[2024-11-23] MEDS: Potassium Chloride LIQUID 20 MEQ/15 ML LIQUID PO ONE (08:30)
[2024-11-23] MEDS: Multivitamins/Minerals TAB PO SCH (08:32)
[2024-11-23] MEDS: Cholecalciferol (VIT D3) 1,000 unit TAB PO SCH (08:32)
[2024-11-23] MEDS: Magnesium Sulf 4 GM/100 ML IV 4,000 MG/100 ML BAG IVPB ONE (08:51)
[2024-11-23 12:20] LABS: PCO2 Arterial 46 mmHg (35-45); PO2 Arterial 69 mmHg (80-100)
[2024-11-23] MEDS: Albuterol/Ipratropium NEB.SOL (2.5/0.5 MG) 3 ML NEB.SOLN INH SCH (14:08)
[2024-11-24 06:59] LABS: ABS Lymphocytes 0.7 10^3/uL (1.0-4.8); ABS Monocytes 0.6 10^3/uL (0.0-1.1); ABS Neutrophils 5.6 10^3/uL (1.5-7.6); ABS Nucleated RBC 0.01 10^3/ul; Eosinophil % 0.2 %; Hematocrit 39.5 % (38-53); Lymphocyte % 9.6 %; Mean Corpuscular Hemoglobin 30.6 pg (27-33); Mean Corpuscular Hgb Conc 35.5 g/dL (31-36); Mean Corpuscular Volume 86.2 fL (80-97); Mean Platelet Volume 10.3 fL (7.5-11.2); Nucleated Red Blood Cells % 0.1 %/100WBC (0.0-0.8); Platelet Count 107 10^3/uL (150-450); Red Blood Count 4.58 10^6/uL (4.06-5.63); Red Cell Distribution Width 15.3 % (12-17); White Blood Count 6.9 10^3/uL (3.6-10.2)
[2024-11-24 07:06] LABS: Magnesium 2.2 mg/dL (1.9-2.7); Potassium 3.8 mmol/L (3.5-5.0); eGFR CKD-EPI 80.5 (>60)
[2024-11-24] MEDS: cefTRIAXone 1 gm/50 mL D5W 1 GM/50 ML BAG IV SCH (12:33)
[2024-11-24] MEDS: Azithromycin 500 mg/250 ml NS 500 MG/250 ML BAG IVPB SCH (13:18)
[2024-11-24] MEDS ORDERED: Albuterol/Ipratropium NEB.SOL (2.5/0.5 MG) 3 ML NEB.SOLN INH PRN (13:23)
[2024-11-25 07:49] LABS: Anion Gap 4 mmol/L (2-16); Blood Urea Nitrogen 18 mg/dL (6-24); CO2 Carbon Dioxide 30 mmol/L (22-32); Calcium 8.1 mg/dL (8.6-10.3); Chloride 109 mmol/L (101-111); Creatinine, Serum 0.99 mg/dL (0.67-1.17); Glucose 110 mg/dL (70-100); Sodium 143 mmol/L (135-145); eGFR CKD-EPI 81.4 (>60)
[2024-11-25 09:23] LABS: Hematocrit 39.9 % (38-53); Hemoglobin 13.9 g/dL (13.2-16.3); Mean Corpuscular Hemoglobin 30.4 pg (27-33); Mean Corpuscular Hgb Conc 34.9 g/dL (31-36); Mean Corpuscular Volume 87.3 fL (80-97); Red Blood Count 4.56 10^6/uL (4.06-5.63); Red Cell Distribution Width 15.3 % (12-17); White Blood Count 5.6 10^3/uL (3.6-10.2)
[2024-11-25 10:08] LABS: ABS Lymphocytes 0.9 10^3/uL (1.0-4.8); ABS Monocytes 0.6 10^3/uL (0.0-1.1); ABS Nucleated RBC 0.01 10^3/ul; Eosinophil % 0.1 %; Lymphocyte % 16.3 %; Nucleated Red Blood Cells % 0.1 %/100WBC (0.0-0.8); Platelet Count 118 10^3/uL (150-450)
[2024-11-25] MEDS ORDERED: Albuterol HFA INHALER 8 gm MDI INH PRN (14:50)
[2024-11-25 17:22] VITALS: BP 141/83
== END 2024-11-25 19:10 | disposition home or self-care (01) | DRG 193 ==
LOC: ED 07:44 → EDHOLD 07:44 → INTOOBSV 14:56 → OBSVTOIN 14:56 → SUATTDRO 14:56 → MED 17:17
PROVIDERS: ADMIT Hospitalist; ATTEND Student in an Organized Health Care Education/Training Program